=== PATIENT | male | born 1990 | race Caucasian/White ===

== ENCOUNTER 2017-12-06 14:04 | Emergency (ER) | payer BC ==
--- NOTE | 2017-12-06 15:44 | RAD ---
INDICATION: Chest pain COMPARISON: None TECHNIQUE: PA and lateral dual-energy views were obtained. FINDINGS: Bones/Soft Tissues: There are no acute bony findings. Cardiomediastinal: The cardiomediastinal silhouette is normal. Lungs: There are no infiltrates. There is no pneumothorax. Pleura: There are no pleural effusions. Other: None IMPRESSION: NO ACTIVE DISEASE.
[2017-12-06 16:20] LABS: ABS Basophils 0 10^3/ul (0-0.2); ABS Eosinophils 0.1 10^3/ul (0-0.6); ABS Lymphocytes 2.3 10^3/ul (1.0-4.8); ABS Monocytes 0.4 10^3/ul (0-0.8); ABS Neutrophils 3.1 10^3/ul (1.5-7.7); ABS Nucleated RBC 0 10^3/ul; Eosinophil % 1.6 % (0-6); Hematocrit 40 % (42-52); Hemoglobin 13.7 g/dl (14.0-18.0); Lymphocyte % 39.8 % (25-47); Mean Corpuscular HGB Conc 35 g/dl (31-36); Mean Corpuscular Hemoglobin 31 pg (27-31); Mean Corpuscular Volume 89 fL (80-94); Mean Platelet Volume 8.7 um3 (7.4-10.4); Nucleated Red Blood Cells % 0.1; Platelet Count 171 10^3/ul (150-450); Red Blood Count 4.45 10^6/ul (4.0-5.4); Red Cell Distribution Width 13 % (10.5-15); White Blood Count 5.9 10^3/ul (3.5-10.8)
--- NOTE | 2017-12-06 16:35 | ED ---
Shortness of Breath - HPI Summary HPI Summary: Patient is an otherwise healthy 27-year-old male presenting to the ED with 3 days of midsternal chest pressure and now today with mild shortness of breath. Pressure and shortness of breath not this aggravated with exertion or alleviated with rest. Denies any positioning changes which effect his symptoms. Denies any cardiac or pulmonary history. He denies having a recent URI, denies cough, denies fevers, sweats, chills. Denies any sinus pressure, nausea, vomiting, diarrhea. He has not taken any medication for relief. The shortness of breath was acute at onset he states he was "hyperventilating". This has never happened before, pressure is rated 3 out of 10, constant, not worse with position. He states he is feeling mildly improved since he has arrived. Denies any shortness of breath at this time, but continues to endorse the midsternal chest pressure. Chest pressure does not radiate and denies any neck or jaw pain, denies any numbness or tingling in the bilateral extremities. Vital signs are stable on arrival. He appears to be in no acute distress. Patient is a smoker. EtOH rarely. Denies any family history of cardiac. - History of Current Complaint Chief Complaint: EDShortnessOfBreath Time Seen by Provider: 12/06/17 14:22 Hx Obtained From: Patient Onset/Duration: Gradual Onset Timing: Constant Current Severity: None Dyspnea At: Rest - Risk Factors Pulmonary Embolism: Negative Cardiac: Negative Pseudomonas: Negative Tuberculosis: Negative - Allergy/Home Medications Allergies/Adverse Reactions: Allergies Allergy/AdvReac Type Severity Reaction Status Date / Time No Known Allergies Allergy Verified 12/06/17 14:08 Home Medications: Home Medications NK [No Home Medications Reported] 12/06/17 [History Confirmed 12/06/17] PMH/Surg Hx/FS Hx/Imm Hx Previously Healthy: Yes - Immunization History Hx Pertussis Vaccination: No Immunizations Up to Date: Unable to Obtain/Confirm Infectious Disease History: No Infectious Disease History: Denies: Traveled Outside the [place] in Last 30 Days - Social History Occupation: Employed Full-time Lives: With Family Alcohol Use: None Hx Substance Use: No Substance Use Type: Reports: None Hx Tobacco Use: Yes Smoking Status (MU): Light Every Day Tobacco Smoker Review of Systems Constitutional: Negative Negative: Fever, Chills, Fatigue Eyes: Negative Cardiovascular: Negative Respiratory: Negative Genitourinary: Negative Positive: no symptoms reported, see HPI Skin: Negative Neurological: Negative All Other Systems Reviewed And Are Negative: Yes Physical Exam Triage Information Reviewed: Yes Vital Signs On Initial Exam: Initial Vitals Temp Pulse Resp BP Pulse Ox 99.8 F 76 17 111/76 100 12/06/17 14:05 12/06/17 14:05 12/06/17 14:05 12/06/17 14:05 12/06/17 14:05 Vital Signs Reviewed: Yes Appearance: Positive: Well-Appearing, Well-Nourished Skin: Positive: Warm, Skin Color Reflects Adequate Perfusion Head/Face: Positive: Normal Head/Face Inspection Eyes: Positive: EOMI, LIBBY, Conjunctiva Clear Neck: Positive: Supple, No Lymphadenopathy Respiratory/Lung Sounds: Positive: Clear to Auscultation, Breath Sounds Present Cardiovascular: Positive: RRR, Pulses are Symmetrical in both Upper and Lower Extremities Musculoskeletal: Positive: Normal, Strength/ROM Intact Neurological: Positive: Alert, Oriented to Person Place, Time, Speech Normal Psychiatric: Positive: Normal, Affect/Mood Appropriate AVPU Assessment: Alert Diagnostics - Vital Signs Vital Signs Temp Pulse Resp BP Pulse Ox 12/06/17 14:05 99.8 F 76 17 111/76 100 - Laboratory Lab Results: Lab Results 12/06/17 Range/Units 16:09 WBC 5.9 (3.5-10.8) 10^3/ul RBC 4.45 (4.0-5.4) 10^6/ul Hgb 13.7 L (14.0-18.0) g/dl Hct 40 L (42-52) % MCV 89 (80-94) fL MCH 31 (27-31) pg MCHC 35 (31-36) g/dl RDW 13 (10.5-15) % Plt Count 171 (150-450) 10^3/ul MPV 8.7 (7.4-10.4) um3 Neut % (Auto) 51.9 (38-83) % Lymph % (Auto) 39.8 (25-47) % [place] % (Auto) 6.1 (0-7) % Eos % (Auto) 1.6 (0-6) % Baso % (Auto) 0.6 (0-2) % Absolute Neuts (auto) 3.1 (1.5-7.7) 10^3/ul Absolute Lymphs (auto) 2.3 (1.0-4.8) 10^3/ul Absolute Monos (auto) 0.4 (0-0.8) 10^3/ul Absolute Eos (auto) 0.1 (0-0.6) 10^3/ul Absolute Basos (auto) 0 (0-0.2) 10^3/ul Absolute Nucleated RBC 0 10^3/ul Nucleated RBC % 0.1 Result Diagrams: 12/06/17 16:09 12/06/17 16:09 Lab Statement: Any lab studies that have been ordered have been reviewed, and results considered in the medical decision making process. Course/Dx - Course Course Of Treatment: With this treatment, the patient's evaluated for chest pressure and shortness of breath. Chest pressure has been present 3 days with acute onset of shortness of breath at work today. Denies any shortness of breath at this time. Denies any history of anxiety. EKG obtained which shows no acute findings and a normal sinus rhythm. Chest x-ray obtained which shows no active acute croup pulmonary disease. Troponin obtained which is 0.00. All of the labs are unremarkable. Discussed with the patient the results of his lab work at this time. Patient is feeling improved and is okay with discharge. I discussed the possibility of costochondritis or inhalation of fumes from his job. 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 Has been working frequently in this job and has never had an issue. - Diagnoses Differential Diagnosis/HQI/PQRI: Positive: Bronchitis, Unstable Angina Provider Diagnoses: Chest pressure Discharge - Sign-Out/Discharge Documenting (check all that apply): Discharge - Discharge Plan Condition: Stable Disposition: HOME Patient Education Materials: Costochondritis (ED) Referrals: No Primary Care Phys,NOPCP [Primary Care Provider] - Additional Instructions: Please follow-up which were PCP Ibuprofen 600mg 3 times daily I have given you information on costochondritis However, as discussed we are unable to be sure if this is what is causing your symptoms If he develop any changing or worsening symptoms, return to the ED immediately - Billing Disposition and Condition Condition: STABLE Disposition: HOME
[2017-12-06 16:49] LABS: EGFR Non-African American 112.7 (>60)
[2017-12-06 18:07] VITALS: BP 100/60
== END 2017-12-06 18:06 | disposition home or self-care (01) ==
LOC: ED 14:04
DX: R07.9 Chest pain, unspecified (principal); R06.02 Shortness of breath
CPT/HCPCS: 36415; 71046; 80053; 83605; 83735; 84484; 85025; 99283